=== PATIENT | male | born 1990 | race Caucasian/White ===

== ENCOUNTER 2020-01-09 14:04 | Emergency (ER) | payer BC ==
[~2020-01-09] VITALS: Ht 175.3 cm; Wt 85.8 kg
[2020-01-09 14:17] VITALS: BP 126/90
[2020-01-09] MEDS ORDERED: CEPH-264 PO (14:57)
[2020-01-09] MEDS ORDERED: CEPHALEXIN 250 MG CAPSULE ONE (14:58)
--- NOTE | 2020-01-09 14:58 | PHYS DOC ---
Past History Past Medical History: Diabetes, Migraines Past Surgical History: Tonsillectomy Smoking: Less than 1pk/day Alcohol Use: Occasionally Drug Use: None General Adult EDM: Chief Complaint: LACERATION/AVULSION HPI: HPI: 30-year-old male presents with right thumb laceration. The patient was pushing toward a stone jig when his finger slipped and it jabbed into the blade. He has laceration of the tip of the thumb on the palmar side. He created a flap and immediately started to bleed. The patient has been able to get stop bleeding with direct pressure. He just barely missed the nail. The flap is cut on 3 sides. Patient denies any other complaints. His tetanus is not up-to-date. Review of Systems: Review of Systems: Constitutional: Denies fever or chills Eyes: Denies change in visual acuity HENT: Denies nasal congestion or sore throat Respiratory: Denies cough or shortness of breath Cardiovascular: Denies chest pain or edema GI: Denies abdominal pain, nausea, vomiting, bloody stools or diarrhea : Denies dysuria Musculoskeletal: Denies back pain or joint pain Integument: Laceration right thumb Neurologic: Denies headache, focal weakness or sensory changes Endocrine: Denies polyuria or polydipsia Lymphatic: Denies swollen glands Psychiatric: Denies depression or anxiety Heart Score: Risk Factors: Risk Factors: DM, Current or recent (<one month) smoker, HTN, HLP, family history of CAD, obesity. Risk Scores: Score 0 - 3: 2.5% MACE over next 6 weeks - Discharge Home Score 4 - 6: 20.3% MACE over next 6 weeks - Admit for Clinical Observation Score 7 - 10: 72.7% MACE over next 6 weeks - Early Invasive Strategies Allergies: Allergies: Allergies Coded Allergies Type Severity Reaction Last Updated Verified No Known Drug Allergies 08/27/13 No Physical Exam: PE: Constitutional: Well developed, well nourished, no acute distress, non-toxic appearance. [] HENT: Normocephalic, atraumatic, bilateral external ears normal, oropharynx moist, no oral exudates, nose normal. [] Eyes: PERRLA, EOMI, conjunctiva normal, no discharge. [] Neck: Normal range of motion, no tenderness, supple, no stridor. [] Cardiovascular:Heart rate regular rhythm, no murmur [] Lungs & Thorax: Bilateral breath sounds clear to auscultation [] Abdomen: Bowel sounds normal, soft, no tenderness, no masses, no pulsatile masses. [] Skin: 1.5 cm curved laceration flap of the right thumb. [] Back: No tenderness, no CVA tenderness. [] Extremities: No tenderness, no cyanosis, no clubbing, ROM intact, no edema. [] Neurologic: Alert and oriented X 3, normal motor function, normal sensory function, no focal deficits noted. [] Psychologic: Affect normal, judgement normal, mood normal. [] Current Patient Data: Vital Signs: Vital Signs Date Time Temp Pulse Resp B/P (MAP) Pulse Ox O2 Delivery O2 Flow Rate FiO2 01/09/20 14:17 98.1 74 16 126/90 (102) 100 Room Air EKG: EKG: [] Radiology/Procedures: Radiology/Procedures: [] Course & Med Decision Making: Course & Med Decision Making Pertinent Labs and Imaging studies reviewed. (See chart for details) The patient's flap is a increasing angle into the skin. It is cut on 3 sides. It is unlikely that some portion or possibly a significant portion of this flap will survive. I do not believe that suturing it would be of value. Direct pressure and compression of the area is the best hope for as much of the skin to reattach as possible. The other area will try off either way. We will update the patient's tetanus in the ED. I will place him on Keflex prophylactically for 5 days. I have given the first dose in the emergency room. He is stable for discharge at this time. [] Nela Disclaimer: Nela Disclaimer: This electronic medical record was generated, in whole or in part, using a voice recognition dictation system. Departure Departure: Impression: Primary Impression: Laceration of right thumb Qualified Codes: S61.011A - Laceration without foreign body of right thumb without damage to nail, initial encounter Disposition: HOME/RESIDENCE PRIOR TO ADM Condition: STABLE Referrals: PCP,NO (PCP) Patient Instructions: Fingertip Laceration Scripts Cephalexin (KEFLEX) 500 Mg Capsule 1 CAP PO TID for infection prophylaxis for 5 Days, #15 CAP 0 Refills Prov: DANIEL PATEL DO 01/09/20 Justification of Admission: Justification of Admission: Justification of Admission Dx: N/A DANIEL PATEL DO Jan 09, 2020 14:58
[2020-01-09] MEDS ORDERED: DIPH,PERTUSS(ACELL),TET VAC/PF 0.5 ML SYRINGE. VAX IM ONE (15:00)
[2020-01-09] MEDS ORDERED: CEPHALEXIN 250 MG CAPSULE PO ONE (15:00)
== END 2020-01-09 15:15 | disposition home or self-care (01) ==
LOC: ER 14:04
DX: S61.011A Laceration without foreign body of right thumb without damage to nail, initial encounter (principal); E11.9 Type 2 diabetes mellitus without complications; G43.909 Migraine, unspecified, not intractable, without status migrainosus; F17.200 Nicotine dependence, unspecified, uncomplicated; W26.8XXA Contact with other sharp object(s), not elsewhere classified, initial encounter; Y93.89 Activity, other specified; Y92.89 Other specified places as the place of occurrence of the external cause; Y99.8 Other external cause status
CPT/HCPCS: 90471; 90715; 99283

== ENCOUNTER 2020-07-26 11:10 | Emergency (ER) | payer BC ==
[~2020-07-26] VITALS: Ht 175.3 cm; Wt 85.8 kg
[2020-07-26 11:10] VITALS: BP 115/73
[~2020-07-26 11:10] MED LIST: CEPH-264 PO
--- NOTE | 2020-07-26 11:50 | PHYS DOC ---
Past History Past Medical History: Diabetes, Migraines Past Surgical History: Tonsillectomy Smoking: Less than 1pk/day Alcohol Use: Occasionally Drug Use: None Adult General Chief Complaint Chief Complaint: CELLULITIS HPI HPI Patient is a 30-year-old male presenting for 4-day history of right foot pain. Reports this pain is waxed and waned without any known trauma or reportable incident. States he woke up this morning after sleeping well with acute right foot pain. States pain originated around right big toe 4 days ago and migrated over to right lateral portion of foot over base of fifth metatarsal. States there is mild edema and point tenderness to the fifth metatarsal that is new. Denies any recent intoxication, traumatic event as noted above, known bony abnormalities or congenital conditions. States he has history of gout, had gout in contralateral big toe many years ago but states he is unsure if this feels similar to prior flareup. He is on no prophylactic medications Review of Systems Review of Systems Fourteen body systems of review of systems have been reviewed. See HPI for pertinent positives and negative responses, other moore all other systems are negative, non-pertinent or non-contributory Allergies Allergies Allergies Coded Allergies Type Severity Reaction Last Updated Verified No Known Drug Allergies 08/27/13 No Physical Exam Physical Exam Constitutional: Well developed, well nourished, no acute distress, non-toxic appearance. HENT: Normocephalic, atraumatic, bilateral external ears normal, oropharynx moist, no oral exudates, nose normal. Eyes: PERRLA, EOMI, conjunctiva normal, no discharge. Neck: Normal range of motion, no tenderness, supple, no stridor. Cardiovascular: Heart rate regular per monitor Lungs & Thorax: No respiratory distress or accessory muscle use, bilateral chest rise Abdomen: Abdomen soft, non-tender, bowel sounds present in all quadrants, no guarding or rebound, nonacute abdomen. Skin: Warm, dry, no erythema, no rash. Back: No tenderness, no CVA tenderness. Extremities: No cyanosis, no clubbing, ROM intact, trace edema noted to right lateral portion of right foot. Point tenderness noted to base of right metatarsal. Point tenderness with direct palpation of right big toe without any obvious visual and/or palpable abnormalities of remaining foot, no erythema, streaking or other signs concerning for acute infection. Pulses intact bilaterally Neurologic: Alert and oriented X 3, grossly normal motor & sensory function, no focal deficits noted. Psychologic: Affect normal, judgement normal, mood normal. Current Patient Data Lab Results Current Medications Medications (Trade) Dose Ordered Sig/Louann Route PRN Reason Start Time Stop Time Status Last Admin Dose Admin Acetaminophen (Tylenol) 650 mg 1X ONCE PO 07/26/20 12:00 07/26/20 12:01 DC 07/26/20 12:00 EKG EKG [] Radiology/Procedures Radiology/Procedures PROCEDURE: FOOT RIGHT 3V Three-view right foot series Clinical indications: Navicular pain. No known trauma. FINDINGS: No acute fracture or dislocation or lytic process or periosteal reaction is evident. The navicular bone appears normal. No significant arthritic change is seen. No plantar spur of the calcaneus is seen. IMPRESSION: No significant osseous abnormality. Electronically signed by: Jose Amso MD (07/26/2020 12:06 PM) [id number] Heart Score C/O Chest Pain: No HEART Score for Chest Pain: HEART Score for Chest Pain Response (Comments) Value History Slighlty/Non-Suspicious 0 Age < 45 0 Risk Factors No Risk Factors 0 Total 0 Risk Factors: Risk Factors: DM, Current or recent (<one month) smoker, HTN, HLP, family history of CAD, obesity. Risk Scores: Risk Factors: DM, Current or recent (<one month) smoker, HTN, HLP, family history of CAD, obesity. Course & Med Decision Making Course & Med Decision Making Afebrile, hemodynamically stable, history concerning for MSK abnormality of right foot versus gout. Physical exam grossly nonconcerning but positive Barrow foot rule due to point tenderness of right metatarsal Radiograph imaging of right foot interpreted by myself as negative with confirmation by radiologist I discussed entire clinical scenario with patient. I disclosed no further ER intervention was indicated at this time. I discussed role of continued supportive care in outpatient setting with close PCP follow-up, patient was amenable as pain had improved and he was ambulatory I disclosed treatment that involved NSAID use was indicated for both gout and MSK sprain/strain/contusion Patient responded to Tylenol and ibuprofen administration while in ER setting. I advised him to continue Tylenol use, icing foot and right new prescription for Naprosyn for short-term home use Strict return precautions were discussed with good understanding by patient, all questions and concerns addressed prior to ER departure and improved condition Nela Disclaimer Nela Disclaimer This electronic medical record was generated, in whole or in part, using a voice recognition dictation system. Departure Departure: Impression: Primary Impression: Right foot pain Disposition: 01 DC HOME SELF CARE/HOMELESS Condition: IMPROVED Referrals: GEORGE PORTILLO MD (PCP) Patient Instructions: Foot Contusion Additional Instructions: It is likely that you have experienced a sprain/strain to an associated ligament/tendon within the joint that is causing you pain. The best treatment for this injury is continued range of motion (non weight bearing) to prevent a frozen joint. A Rest, Ice, Compression, Elevation (RICE) strategy may also be helpful in the acute phase. Please follow up with your primary doctor. Please return to the ED if new or worrisome symptoms arise. Scripts Naproxen (NAPROXEN) 500 Mg Tablet 1 TAB PO BID for pain for 7 Days, #14 TAB 0 Refills Prov: NASRA MCKEON DO 07/26/20 NASRA MCKEON DO Jul 26, 2020 11:50
[2020-07-26] MEDS ORDERED: ACETAMINOPHEN 325 MG TABLET PO ONE (12:00)
--- NOTE | 2020-07-26 12:09 | RAD ---
Three-view right foot series Clinical indications: Navicular pain. No known trauma. FINDINGS: No acute fracture or dislocation or lytic process or periosteal reaction is evident. The na vicular bone appears normal. No significant arthritic change is seen. No plantar spur of the calcaneu s is seen. IMPRESSION: No significant osseous abnormality. Electronically signed by: Jose Amos MD (07/26/2020 12:06 PM) [id number]
[2020-07-26] MEDS ORDERED: NAPR-514 PO (12:15)
== END 2020-07-26 12:50 | disposition home or self-care (01) ==
LOC: ER 11:10
DX: M79.671 Pain in right foot (principal); E11.9 Type 2 diabetes mellitus without complications; G43.909 Migraine, unspecified, not intractable, without status migrainosus; F17.200 Nicotine dependence, unspecified, uncomplicated
CPT/HCPCS: 73630; 99283

== ENCOUNTER 2020-10-19 18:06 | Emergency (ER) | payer BC ==
[~2020-10-19] VITALS: Ht 175.3 cm; Wt 76.2 kg
[~2020-10-19 18:06] MED LIST changes: +NAPR-514 PO
[2020-10-19 18:19] VITALS: BP 163/95
[2020-10-19] MEDS ORDERED: LIDOCAINE 2% VISCOUS 15 ML SOLUTION. ONE (18:24)
[2020-10-19] MEDS ORDERED: LIDOCAINE/EPI/TETRACAINE TOPICAL GEL 3 ML. TP ONE (18:30)
[2020-10-19] MEDS ORDERED: CEPH500C PO (18:56)
[2020-10-19] MEDS ORDERED: CEPHALEXIN 250 MG CAPSULE PO ONE (19:00)
--- NOTE | 2020-10-19 19:02 | PHYS DOC ---
Past History Past Medical History: Asthma Past Surgical History: No Surgical History Smoking: Less than 1pk/day Alcohol Use: Occasionally Drug Use: None Adult General Chief Complaint Chief Complaint: LACERATION/AVULSION HPI HPI Patient is a 30-year-old male, otherwise healthy, up-to-date on tetanus vaccination who presents with laceration to posterior upper left arm after [place] while he was working and cutting his arm on a piece of barbed wire. Denies any other injuries. States it does not really hurt that much and was not go to come in but his made him. Review of Systems Review of Systems Review of systems otherwise unremarkable except noted in HPI Current Medications Current Medications Current Medications Medications (Trade) Dose Ordered Sig/Louann Start Time Stop Time Status Last Admin Dose Admin Lidocaine HCl (Viscous Lidocaine) 15 ml STK-MED ONCE 10/19/20 18:24 10/19/20 18:25 DC Lidocaine/ Epinephrine (Let (Obla-Wwrgybz-Alpil) Gel) 3 ml 1X ONCE 10/19/20 18:30 10/19/20 18:31 DC Allergies Allergies Allergies Coded Allergies Type Severity Reaction Last Updated Verified No Known Drug Allergies 10/19/20 No Physical Exam Physical Exam Constitutional: Well developed, well nourished, no acute distress, non-toxic appearance. [] Skin: Warm, dry, no erythema, no rash. [] Extremities: Patient has a 6 cm linear laceration on the posterior, upper left arm, bleeding controlled. Range of motion intact. Flexion extension intact. Neurovascular exam intact. Neurologic: Alert and oriented X 3, normal motor function, normal sensory function, no focal deficits noted. [] Psychologic: Affect normal, judgement normal, mood normal. [] Current Patient Data Vital Signs Vital Signs Date Time Temp Pulse Resp B/P (MAP) Pulse Ox O2 Delivery O2 Flow Rate FiO2 10/19/20 18:19 98.5 109 24 163/95 (117) 98 EKG EKG [] Radiology/Procedures Radiology/Procedures 6 cm linear laceration cleaned with sterile water. Topical lidocaine placed for anesthesia. Seven 3-0 nylon sutures placed. Lavaged with sterile water. Bandaged. Patient tolerated procedure well. [] Heart Score C/O Chest Pain: No Risk Factors: Risk Factors: DM, Current or recent (<one month) smoker, HTN, HLP, family history of CAD, obesity. Risk Scores: Risk Factors: DM, Current or recent (<one month) smoker, HTN, HLP, family history of CAD, obesity. Course & Med Decision Making Course & Med Decision Making Patient is a 30-year-old male who presents with arm laceration Vital signs not concerning. Physical exam noted above. Wound lavaged. Topical lidocaine placed for anesthesia. Patient denies need for pain medication at this time. Repaired with suture. Started on Keflex in the ED. Advised on pain management at home. Advised to follow-up with primary care in 7 days for wound check and suture removal. Gave return precautions to the ED. Patient grateful, verbalized understanding and agreed with plan of discharge. Dragon Disclaimer Dragon Disclaimer This electronic medical record was generated, in whole or in part, using a voice recognition dictation system. Departure Departure: Impression: Primary Impression: Arm laceration Disposition: HOME / SELF CARE / HOMELESS Condition: GOOD Referrals: CHEN PORTILLO (PCP) Patient Instructions: Sutured Wound Care Additional Instructions: Please read all the attached information very carefully. Please take all your antibiotics as prescribed. Please keep the area clean and dry. You can use Tylenol and ibuprofen as well as ice at home for pain control. Please follow-up with your primary care physician in approximately 7 days for a wound check and suture removal. Please do not go any longer than 10 days without having it checked. You can come back to the emergency department if you are unable to get into your primary care for wound check and suture removal. You can come back to the ED with new or concerning symptoms as discussed. Scripts Cephalexin (CEPHALEXIN) 500 Mg Capsule 1 CAP PO TID for laceration for 5 Days, #15 CAP Prov: IZZY ORDAZ MD 10/19/20 IZZY ORDAZ MD Oct 19, 2020 19:02
== END 2020-10-19 19:20 | disposition home or self-care (01) ==
LOC: ER 18:06
DX: S41.112A Laceration without foreign body of left upper arm, initial encounter (principal); J45.909 Unspecified asthma, uncomplicated; F17.200 Nicotine dependence, unspecified, uncomplicated; W26.8XXA Contact with other sharp object(s), not elsewhere classified, initial encounter; Y93.39 Activity, other involving climbing, rappelling and jumping off; Y92.89 Other specified places as the place of occurrence of the external cause; Y99.8 Other external cause status
CPT/HCPCS: 12002; 99283